=== PATIENT | female | born 1955 | race Caucasian/White ===

== ENCOUNTER 2018-11-27 10:57 | Emergency (ER) | payer BC ==
[2018-11-27 11:06] VITALS: BP 115/70
--- NOTE | 2018-11-27 12:04 | ED Physician Documentation ---
PD HPI SKIN - Stated complaint Stated Complaint: BUG BITES - Chief complaint Chief Complaint: Wound - History obtained from History obtained from: Patient - History of Present Illness Timing - onset: Other (Starting about 5 days ago she was in the [place] area and developed bug bites from an unknown bug in the anterior thighs, both legs with itching and slight pain there. No fevers, chills, body aches. No other rashes.) Review of Systems Constitutional: denies: Fever, Chills, Myalgias, Fatigue Ears: denies: Loss of hearing, Ear pain Nose: denies: Rhinorrhea / runny nose, Congestion PD PAST MEDICAL HISTORY - Past Medical History Past Medical History: Yes Cardiovascular: Congestive heart failure, Hypertension, High cholesterol, Atrial fibrillation, Other Other Past Medical History: diptheria, cardiomyopathy and ventricular tachycardia - Past Surgical History Past Surgical History: Yes Cardiovascular: Pacemaker, AICD - Present Medications Home Medications: Ambulatory Orders Medication Instructions Recorded Confirmed Apixaban [Eliquis] 5 mg PO BID 11/27/18 11/27/18 Biotin 10,000 mcg PO 11/27/18 Ca/D3/Mag Ox/Zinc/Pest Control Supervisor/Curt/Bor 1 each PO 11/27/18 11/27/18 [Calcium [id number] Chw Tb] Carvedilol 25 mg PO BID 11/27/18 11/27/18 Cholecalciferol (Vitamin D3) 1,000 unit PO 11/27/18 [Vitamin D3] Citalopram [CeleXA] 40 mg PO DAILY 11/27/18 11/27/18 Digoxin 125 mcg PO 11/27/18 Doxycycline Hyclate 100 mg PO BID #20 capsule 11/27/18 Losartan Potassium 25 mg PO 11/27/18 Spironolactone 12.5 mg PO 11/27/18 Zolpidem [Ambien] 10 mg PO HS 11/27/18 11/27/18 - Allergies Allergies/Adverse Reactions: Allergies Allergy/AdvReac Type Severity Reaction Status Date / Time erythromycin base AdvReac Nausea Verified 11/27/18 11:05 - Social History Does the pt smoke?: No Smoking Status: Never smoker Does the pt drink ETOH?: Yes Does the pt have substance abuse?: Yes Substance Use and Type: Marijuana - Immunizations Immunizations are current?: Yes PD ED PE NORMAL - Vitals Vital signs reviewed: Yes - General General: Alert and oriented X 3, No acute distress - Derm Derm: Other (On the upper anterior right thigh there are 3 clustered bites with cellulitis and on the left thigh there are 3 bites, kind of in a line but from each other with a couple centimeters of surrounding cellulitis each.) - Neuro Neuro: Alert and oriented X 3, Normal speech Results - Vitals Vitals: Vital Signs - 24 hr 11/27/18 11:02 Temperature 36 C L Heart Rate 70 Respiratory 18 Rate Blood Pressure 115/70 O2 Saturation 100 Oxygen O2 Source Room air Departure - Departure Disposition: Home, Self Care Clinical Impression: Bug bite with infection Condition: Good Record reviewed to determine appropriate education?: Yes Health Concerns: Infected bug bites, early Lyme is also a possibility. Plan of Treatment: Doxycycline should cover for skin infections as well as potential Lyme disease. Care Goals: improve Assessment: as above Instructions: ED Sting Bite Insect Infec Prescriptions: Doxycycline Hyclate 100 mg PO BID #20 capsule Comments: As discussed, do not go out in the sun too much while on antibiotics. Follow-up with your doctor midweek for recheck. Return if worse.
== END 2018-11-27 12:07 | disposition home or self-care (01) ==
LOC: ED 10:57
DX: L03.116 Cellulitis of left lower limb (principal); L03.115 Cellulitis of right lower limb; S70.362A Insect bite (nonvenomous), left thigh, initial encounter; S70.361A Insect bite (nonvenomous), right thigh, initial encounter; W57.XXXA Bitten or stung by nonvenomous insect and other nonvenomous arthropods, initial encounter; I48.91 Unspecified atrial fibrillation; Z79.01 Long term (current) use of anticoagulants; I10 Essential (primary) hypertension
CPT/HCPCS: 99283